=== PATIENT | female | born 1960 | race Caucasian/White ===

== ENCOUNTER → 2016-12-12 | Outpatient (CLI) | payer BC ==
--- NOTE | 2016-12-13 09:59 | MM ---
Reason for exam: screening (asymptomatic). Last mammogram was performed 1 year and 8 months ago. History: Patient is postmenopausal. Physical Findings: A clinical breast exam by your physician is recommended on an annual basis and results should be correlated with mammographic findings. MG Screening Mammo w CAD Bilateral CC and MLO view(s) were taken. Prior study comparison: April 20, 2015, bilateral MG screening mammo w CAD. June 10, 2013, bilateral digital screening mammo w/CAD. December 12, 2011, CAD bilateral diagnostic mammogram. There are scattered fibroglandular densities. A new group of microcalcifications upper outer quadrant in the right breast warrant further evaluation with magnification views. ASSESSMENT: Incomplete: need additional imaging evaluation, BI-RAD 0 RECOMMENDATION: Special view mammogram of the right breast. [facility] will attempt to contact patient to return for supplemental views.
== END | disposition home or self-care (01) ==
LOC: RADMAMWWP 16:56
PROVIDERS: ATTEND Family Medicine
DX: Z12.31 Encounter for screening mammogram for malignant neoplasm of breast (principal); R92.8 Other abnormal and inconclusive findings on diagnostic imaging of breast; Z78.0 Asymptomatic menopausal state

== ENCOUNTER → 2016-12-19 | Outpatient (CLI) | payer BC ==
--- NOTE | 2016-12-19 08:30 | MM ---
Reason for exam: additional evaluation requested from abnormal screening. Last mammogram was performed less than 1 month ago. History: Patient is postmenopausal. Physical Findings: Nurse did not find any significant physical abnormalities on exam. MG Work Up Mamm w CAD RT ML, CC with magnification, and ML with magnification view(s) were taken of the right breast. Prior study comparison: April 20, 2015, bilateral MG screening mammo w CAD. June 10, 2013, bilateral digital screening mammo w/CAD. Finding: There are indeterminate calcifications in the upper outer quadrant of the right breast. New finding since April 20, 2015 and June 10, 2013. These results were verbally communicated with the patient and result sheet given to the patient on 12/19/16. ASSESSMENT: Suspicious, BI-RAD 4 RECOMMENDATION: Stereotactic core biopsy of the right breast. Called Dr. Khanna with mammographic findings. Patient will make her own appointment. PRELIMINARY REPORT CALLED AND FAXED TO DR. KHANNA ON 12/19/16 AT 300/TMP.
== END | disposition home or self-care (01) ==
LOC: RADMAMWWP 06:59
PROVIDERS: ATTEND Family Medicine
DX: R92.8 Other abnormal and inconclusive findings on diagnostic imaging of breast (principal)

== ENCOUNTER → 2017-01-31 | Day surgery (SDC) | payer BC ==
[~2017-01-31] MED LIST: BACITRACIN OINT 1 EACH PACKET TOPICAL ONE; LIDOCAINE 1% INJ 10MG/ML (20 ML MDV) ONE
--- NOTE | 2017-01-31 08:53 | PCN ---
DATE OF PROCEDURE: PREPROCEDURE DIAGNOSIS: Mammographic abnormality, right breast. POST-PROCEDURE DIAGNOSIS: Mammographic abnormality, right breast. PROCEDURE: Right breast stereotactic core biopsy. SURGEON: YANG LEYVA MD DESCRIPTION OF PROCEDURE: Patient was taken to the stereotactic room. The area of concern in the right breast was identified radiographically. The breast was prepped using a Betadine; 1% lidocaine was used to anesthetize the area of concern. Needle was driven to the correct coordinates. Multiple core biopsies were obtained. Radiograph of specimen revealed area of concern had been removed. A marking clip was left behind. Patient tolerated the procedure in stable condition. Specimen sent for pathology.
--- NOTE | 2017-01-31 12:01 | MM ---
Stereotactic core biopsy right breast. HISTORY: Microcalcifications. The calcifications in question within the right breast were targeted by the undersigned. The examination was performed by the surgeon. Specimen radiograph demonstrates numerous calcifications within the specimen submitted. Post procedural mammogram demonstrates appropriate deployment of radiopaque clip marker. The patient tolerated the procedure well and left the department in stable condition. Pathology results are pending. IMPRESSION: Successful stereotactic core biopsy right breast with pathology results pending. Pathology Results: Benign BREAST, RIGHT, CORE BIOPSY: FIBROCYSTIC CHANGES INCLUDING FIBROSIS, CYSTS, AND FAT NECROSIS WITH FOCAL LYMPHOHISTIOCYTIC INFLAMMATION. PENDING DEEPER LEVELS, SEE NOTE. ADDENDUM REPORT BREAST, RIGHT, CORE BIOPSY: FIBROCYSTIC CHANGES INCLUDING FIBROSIS, CYSTS, AND FAT NECROSIS WITH LYMPHOHISTIOCYTIC INFLAMMATION AND CALCIFICATIONS. Recommendation Follow up mammogram of the right breast in 6 months. MTDD
== END ==
LOC: RADMAMWWP 07:28
PROVIDERS: ATTEND Surgery
DX: N60.31 Fibrosclerosis of right breast (principal); N64.1 Fat necrosis of breast; R92.8 Other abnormal and inconclusive findings on diagnostic imaging of breast; N64.89 Other specified disorders of breast; Z88.8 Allergy status to other drugs, medicaments and biological substances
CPT/HCPCS: 19081; A4648; J2001; 88305

== ENCOUNTER → 2017-12-25 | Outpatient (CLI) | payer BC ==
--- NOTE | 2017-12-25 08:51 | MM ---
Reason for exam: additional evaluation requested from prior study. Last mammogram was performed 1 year ago. History: Patient is postmenopausal. Benign MG stereo VAD BX RT of the right breast, January 31, 2017. Physical Findings: Nurse did not find any significant physical abnormalities on exam. MG Diagnostic Mammo w CAD [facility] Bilateral CC and MLO view(s) were taken. Prior study comparison: December 19, 2016, right breast MG work up mamm w CAD RT. December 12, 2016, bilateral MG screening mammo w CAD. There are scattered fibroglandular densities. Previous mammotome biopsy in the right breast. No significant new findings when compared with previous films. These results were verbally communicated with the patient and result sheet given to the patient on 12/25/17. ASSESSMENT: Negative, BI-RAD 1 RECOMMENDATION: Routine screening mammogram of both breasts in 1 year.
== END | disposition home or self-care (01) ==
LOC: RADMAMWWP 07:46
PROVIDERS: ATTEND Family Medicine
DX: R92.8 Other abnormal and inconclusive findings on diagnostic imaging of breast (principal)
CPT/HCPCS: 77066

== ENCOUNTER 2018-10-15 07:57 | Day surgery (SDC) | payer BC ==
[2018-10-13 17:45] VITALS: BMI 37.1
[~2018-10-15 07:57] MED LIST changes: -BACITRACIN OINT 1 EACH PACKET TOPICAL ONE; +LACTATED RINGERS 1,000 ML IV SCH; +LIDOCAINE 1% 20 ML VIAL (10MG/ML) FOR IV START INTRADERMA PRN; -LIDOCAINE 1% INJ 10MG/ML (20 ML MDV) ONE
--- NOTE | 2018-10-15 08:09 | P.GSHP ---
History of Present Illness H&P Date: 10/15/18 CHIEF COMPLAINT: GERD HISTORY OF PRESENT ILLNESS: The patient is a 57-year-old female who presents reports gastroesophageal reflux disease. Upper endoscopy was offered for further evaluation and management. PAST MEDICAL HISTORY: Please see list. PAST SURGICAL HISTORY: Please see list. MEDICATIONS: Please see list. ALLERGIES: Please see list. SOCIAL HISTORY: No illicit drug use FAMILY HISTORY: No reports of Crohn disease or ulcerative colitis. REVIEW OF ORGAN SYSTEMS: CONSTITUTIONAL: No reports of fevers or chills. GI: Denies any blood in stools or constipation. PHYSICAL EXAM: VITAL SIGNS: Stable GENERAL: Well-developed and pleasant in no acute distress. HEENT: No scleral icterus. Extraocular movements grossly intact. Moist buccal mucosa. NECK: Supple without lymphadenopathy. CHEST: Unlabored respirations. Equal bilateral excursions. CARDIOVASCULAR: Regular rate and rhythm. Distal 2+ pulses. ABDOMEN: Soft, nondistended. MUSCULOSKELETAL: No clubbing, cyanosis, or edema. ASSESSMENT: 1. Gastroesophageal reflux disease PLAN: 1. Recommend proceeding with an upper endoscopy Past Medical History Past Medical History: Diabetes Mellitus, Hyperlipidemia, Hypertension, Osteoarthritis (OA) Additional Past Medical History / Comment(s): pain in left side under ribs History of Any Multi-Drug Resistant Organisms: None Reported Past Surgical History: No Surgical Hx Reported Additional Past Surgical History / Comment(s): colonoscopy Past Anesthesia/Blood Transfusion Reactions: No Reported Reaction Smoking Status: Never smoker - Past Family History Mother Additional Family Medical History / Comment(s): PVC Medications and Allergies Home Medications Medication Instructions Recorded Confirmed Type Losartan/Hydrochlorothiazide 1 tab PO HS 05/06/15 10/13/18 History [Losartan-Hctz 100-25 mg Tab] Ibuprofen [Motrin] 600 mg PO Q6HR PRN #20 tab 01/30/16 10/13/18 Rx amLODIPine [Norvasc] 5 mg PO HS 01/30/16 10/13/18 History Atorvastatin [Lipitor] 20 mg PO HS 10/13/18 10/13/18 History Dulaglutide [Trulicity] 0.75 mg SQ WE 10/13/18 10/13/18 History Ertugliflozin/Metformin 1 each PO BID 10/13/18 10/13/18 History [Segluromet 2.5-1,000 mg Tablet] Allergies Allergy/AdvReac Type Severity Reaction Status Date / Time sucralose Allergy Intermediate MIGRAINES Verified 10/13/18 17:27 aspartame Allergy MIGRAINES Verified 10/13/18 17:27 chocolate flavor AdvReac migraines Verified 10/13/18 17:27
[2018-10-15 08:19] VITALS: TEMP 97.8
[2018-10-15] MEDS ORDERED: LACTATED RINGERS 1,000 ML IV ONE (08:19)
[2018-10-15 08:25] LABS: Glucose,Whole Blood 133 mg/dL (75-99)
[2018-10-15] MEDS ORDERED: PROPOFOL 10 MG/ML 20 ML VIAL IV ONE (08:37)
[2018-10-15 08:55] VITALS: RESP 16
--- NOTE | 2018-10-15 08:58 | P.PCN ---
Date of Procedure: 10/15/18 Description of Procedure: PREOPERATIVE DIAGNOSIS: Gastroesophageal reflux disease. Chronic NSAID use Epigastric abdominal pain Morbid obesity POSTOPERATIVE DIAGNOSIS: Gastroesophageal reflux disease. Chronic NSAID use Epigastric abdominal pain Morbid obesity Duodenal polyp OPERATION: Esophagogastroduodenoscopy with biopsies along duodenum SURGEON: Traci Baugh MD ANESTHESIA: MAC. INDICATIONS: The patient is a 57-year-old female who presents with a history of reflux disease and epigastric abdominal pain. Benefits and risks of the procedure were described. Informed consent was obtained. DESCRIPTION: The patient was brought into the endoscopy suite and laid in the left lateral decubitus position. An Olympus gastroscope was passed along the posterior oropharynx down to the distal esophagus where the squamocolumnar junction was encountered at 40 cm from the incisors. The stomach was entered and no bile reflux was found. Additional findings are listed below. The first through third portion of the duodenum was examined and remarkable for 2 cm flat villous polyp with biopsies obtained. Retroflexion of the scope confirmed Hill grade 2 lower esophageal valve. The squamocolumnar junction demonstrated LA grade A erosive esophagitis. The stomach was desufflated. The patient tolerated the procedure well. FINDINGS: Squamocolumnar junction 40 cm from the incisors. Diaphragmatic hiatus at 40 cm. Hill grade 2 lower esophageal valve. LA grade A erosive esophagitis. Flat villous polyp of the duodenum, first portion Chronic gastritis RECOMMENDATIONS: Upper endoscopy as needed. Plan - Discharge Summary New Discharge Prescriptions: No Action Losartan/Hydrochlorothiazide [Losartan-Hctz 100-25 mg Tab] 1 tab PO HS amLODIPine [Norvasc] 5 mg PO HS Ibuprofen [Motrin] 600 mg PO Q6HR PRN #20 tab PRN Reason: Pain Dulaglutide [Trulicity] 0.75 mg SQ WE Atorvastatin [Lipitor] 20 mg PO HS Ertugliflozin/Metformin [Segluromet 2.5-1,000 mg Tablet] 1 each PO BID Discharge Medication List Losartan/Hydrochlorothiazide [Losartan-Hctz 100-25 mg Tab] 1 tab PO HS 05/06/15 [History] Ibuprofen [Motrin] 600 mg PO Q6HR PRN #20 tab 01/30/16 [Rx] amLODIPine [Norvasc] 5 mg PO HS 01/30/16 [History] Atorvastatin [Lipitor] 20 mg PO HS 10/13/18 [History] Dulaglutide [Trulicity] 0.75 mg SQ WE 10/13/18 [History] Ertugliflozin/Metformin [Segluromet 2.5-1,000 mg Tablet] 1 each PO BID 10/13/18 [History]
[2018-10-15 09:09] VITALS: PULSE 80
[2018-10-15 09:24] VITALS: BP 130/84
== END 2018-10-15 09:26 | disposition home or self-care (01) ==
LOC: ORWHC2ENDO 07:57
PROVIDERS: ATTEND Surgery Plastic and Reconstructive Surgery
DX: K31.7 Polyp of stomach and duodenum (principal); K22.10 Ulcer of esophagus without bleeding; K21.0 Gastro-esophageal reflux disease with esophagitis; K29.50 Unspecified chronic gastritis without bleeding; Z79.1 Long term (current) use of non-steroidal anti-inflammatories (NSAID); E66.01 Morbid (severe) obesity due to excess calories; Z68.37 Body mass index [BMI] 37.0-37.9, adult; E11.9 Type 2 diabetes mellitus without complications; E78.5 Hyperlipidemia, unspecified; I10 Essential (primary) hypertension; M19.90 Unspecified osteoarthritis, unspecified site; Z79.84 Long term (current) use of oral hypoglycemic drugs; Z79.899 Other long term (current) drug therapy; Z88.5 Allergy status to narcotic agent; Z88.2 Allergy status to sulfonamides; Z91.02 Food additives allergy status
CPT/HCPCS: 88305; 43239; J2704

== ENCOUNTER → 2021-07-19 | Day surgery (SDC) | payer BC ==
[2021-07-18 11:21] VITALS: BMI 37.1
[~2021-07-19] MED LIST changes: +LACTATED RINGERS 1,000 ML IV ONE; +LIDOCAINE 1% (10MG/ML) FOR IV START INTRADERMA PRN; -LIDOCAINE 1% 20 ML VIAL (10MG/ML) FOR IV START INTRADERMA PRN; +PROPOFOL 10 MG/ML 20 ML VIAL IV ONE
[2021-07-19 08:17] VITALS: TEMP 97
[2021-07-19 08:23] LABS: Glucose,Whole Blood 169 mg/dL (75-99)
--- NOTE | 2021-07-19 08:50 | P.PCN ---
Date of Procedure: 07/19/21 Procedure(s) Performed: BRIEF HISTORY: Patient is a 60-year-old pleasant female scheduled for an elective colonoscopy as a part of screening for colorectal neoplasia. Her last screening colonoscopy was 10 years. PROCEDURE PERFORMED: Colonoscopy. PREOPERATIVE DIAGNOSIS: Screening for colon cancer. IV sedation per Anesthesia. PROCEDURE: After informed consent was obtained, the patient, was brought into the endoscopy unit. IV sedation was administered by Anesthesia under continuous monitoring. Digital rectal examination was normal. Initially the Olympus CF-160 flexible video colonoscope was then inserted in the rectum, gradually advanced into the cecum without any difficulty. Careful examination was performed as the scope was gradually being withdrawn. Ileocecal valve and the appendiceal orifice were visualized and appeared normal. Prep was excellent. Mucosa of the cecum, ascending colon, transverse colon, descending colon, sigmoid colon, and rectum appeared normal. Retroflexion was performed in the rectum and no lesions were seen. The patient tolerated the procedure well. IMPRESSION: Normal-appearing colon from rectum to cecum with no evidence of colorectal neoplasia . RECOMMENDATIONS: Findings of this examination were discussed with the patient as well as a family. She was advised to have a repeat screen colonoscopy in 10 years.
[2021-07-19 08:54] VITALS: RESP 15
[2021-07-19 09:14] VITALS: BP 115/78; PULSE 70
== END ==
LOC: ORWHC2ENDO 07:51
PROVIDERS: ATTEND Internal Medicine Gastroenterology
DX: Z12.11 Encounter for screening for malignant neoplasm of colon (principal); I10 Essential (primary) hypertension; E78.5 Hyperlipidemia, unspecified; E11.9 Type 2 diabetes mellitus without complications
CPT/HCPCS: 45378; J2704

== ENCOUNTER → 2022-06-06 | Outpatient (CLI) | payer BC ==
--- NOTE | 2022-06-07 23:25 | XR ---
EXAMINATION TYPE: XR foot complete LT DATE OF EXAM: 06/06/2022 CLINICAL HISTORY: Pain. TECHNIQUE: Frontal, lateral, and oblique images of the left foot are obtained. COMPARISON: None FINDINGS: There is no acute fracture/dislocation evident in the left foot. Large inferior calcaneal spur. Moderate narrowing midfoot level including Lisfranc joints with moderate to severe spurring at base of metatarsals along with dorsal aspect of the navicular bone. Subchondral cystic change at this level is present. Mild diffuse subcutaneous edema. Tiny curvilinear calcification distal Achilles te ndon insertion. IMPRESSION: As above.
== END | disposition home or self-care (01) ==
LOC: RADXRMAIN 10:32
PROVIDERS: ATTEND Family Medicine
DX: M79.672 Pain in left foot (principal)

== ENCOUNTER → 2022-10-17 | Outpatient (CLI) | payer BC ==
--- NOTE | 2022-10-18 08:25 | MM ---
Reason for Exam: Screening (asymptomatic). Last mammogram was performed 2 year(s) and 4 month(s) ago. Patient History: Menarche at age 10. First Full-Term at age 20. Postmenopausal. Patient has history of breast feeding. 01/31/2017, Benign Core Biopsy on the right side. Risk Values: Jasmin 5 year model risk: 1.7%. NCI Lifetime model risk: 7.1%. Prior Study Comparison: 04/20/2015 Bilateral Screening Mammogram, [facility]. 12/12/2016 Bilateral Screening Mammogram, [facility]. 12/19/2016 Right Diagnostic Mammogram, [facility]. 12/25/2017 Bilateral Diagnostic Mammogram, [facility]. 06/22/2020 Bilateral Screening Mammogram, [facility]. Tissue Density: The breast tissue is almost entirely fat. Findings: Analyzed By CAD. There is no suspicious group of microcalcifications or new suspicious mass in either breast. Overall Assessment: Negative, BI-RAD 1 Management: Screening Mammogram of both breasts in 1 year. A clinical breast exam by your physician is recommended on an annual basis and results should be correlated with mammographic findings. [facility] will attempt to contact patient to return for supplemental views and ultrasound if indicated. Electronically signed and approved by: Oliver Neff DO
== END | disposition home or self-care (01) ==
LOC: RADMAMWWP 07:04
PROVIDERS: ATTEND Family Medicine
DX: Z12.31 Encounter for screening mammogram for malignant neoplasm of breast (principal); Z78.0 Asymptomatic menopausal state
CPT/HCPCS: 77067

== ENCOUNTER → 2024-01-22 | Outpatient (CLI) | payer BC ==
--- NOTE | 2024-01-22 10:14 | BD ---
EXAMINATION TYPE: Axial Bone Density DATE OF EXAM: 01/22/2024 CLINICAL HISTORY: 63 years old Female. ICD-10 CODE: Z78.0 ASYMPTOMATIC MENOPAUSAL STATE Height: 66" Weight: 226lbs FRAX RISK QUESTIONS: Alcohol (3 or more units per day): No Family History (Parent hip fracture): No Glucocorticoids (More than 3mos): No (Ex: prednisone, prednisolone, methylprednisolone, dexamethasone, and hydrocortisone). History of Fracture in Adulthood: No Secondary Osteoporosis: 1. Type 1 Diabetes: No 2. Hyperthyroidism: No 3. Menopause before 45: No 4. Malnutrition: No 5. Chronic liver disease: No Rheumatoid Arthritis: No Current Tobacco Use: No RISK FACTORS HISTORY OF: Hip Fracture (Right/Left): No Spine Fracture: No History of Wrist Fracture: No Surgery to Spine/Hip(right/left)/Wrist (right/left): No MEDICATIONS: Thyroid Medications: No Osteoporosis Medications: No Patient takes vitamin D EXAM MEASUREMENTS: Bone mineral densitometry was performed using the [employer] System. Bone mineral density as measured about the Lumbar spine is: ----- L1-L4(G/cm2): 1.741 T Score Values are as follows: ----- L1: 4.6 ----- L2: 5.0 ----- L3: 3.7 ----- L4: 5.3 ----- L1-L4: 4.7 Z Score Values are as follows: ----- L1: 5.0 ----- L2: 5.5 ----- L3: 4.1 ----- L4: 5.7 ----- L1-L4: 5.1 Baseline @MPH Bone mineral density about the R hip (g/cm2): 1.190 Bone mineral density about the L hip (g/cm2): 1.249 T Score values are as follows: -----R Neck: 1.1 -----L Neck: 1.3 -----R Total: 1.4 -----L Total: 1.9 Z Score values are as follows: -----R Neck: 1.8 -----L Neck: 2.0 -----R Total: 1.8 -----L Total: 2.3 Baseline @MPH FRAX%s: The graph provided illustrates a 5.2% chance for a major osteoporotic fx and a 0.1% chance fo r the hips probability for fx in 10 years time. IMPRESSION: Normal (Values between +1 and -1 indicate normal bone mass). Consider repeating this study in 5 year s or sooner if there is some new clinical indication. NOTE: T-SCORE=SD OF THE YOUNG ADULT MEAN.
--- NOTE | 2024-01-23 20:05 | MM ---
Reason for Exam: Screening (asymptomatic). Last mammogram was performed 1 year(s) and 3 month(s) ago. Patient History: Menarche at age 10. First Full-Term at age 20. Postmenopausal. Patient has history of breast feeding. 01/31/2017, Benign Core Biopsy on the right side. Risk Values: Jasmin 5 year model risk: 1.8%. NCI Lifetime model risk: 6.6%. Prior Study Comparison: 12/25/2017 Bilateral Diagnostic Mammogram, [facility]. 06/22/2020 Bilateral Screening Mammogram, [facility]. 10/17/2022 Bilateral MG screening mammo w CAD, [facility]. Tissue Density: There are scattered areas of fibroglandular density. Findings: Analyzed By CAD. Microclip right breast from prior biopsy. There is no suspicious group of microcalcifications or new suspicious mass in either breast. Overall Assessment: Negative, BI-RAD 1 Management: Screening Mammogram of both breasts in 1 year. . Patient should continue monthly self-breast exams. A clinical breast exam by your physician is recommended on an annual basis. This exam should not preclude additional follow-up of suspicious palpable abnormalities. Note on Jasmin scores and lifetime risk: 1. A Jasmin score greater than 3% is considered moderate risk. If this is the case, consider specialist referral to assess eligibility for a risk reducing agent. 2. If overall lifetime risk for the development of breast cancer is 20% or higher, the patient may qualify for future screening with alternating mammogram and breast MRI. Electronically signed and approved by: Bebeto Barrett M.D. Radiologist
== END | disposition home or self-care (01) ==
LOC: RADMAMWWP 06:54
PROVIDERS: ATTEND Family Medicine
DX: Z12.31 Encounter for screening mammogram for malignant neoplasm of breast (principal); Z78.0 Asymptomatic menopausal state
CPT/HCPCS: 77063; 77067; 77080

== ENCOUNTER → 2025-02-10 | Outpatient (CLI) | payer MEDICARE ==
--- NOTE | 2025-02-10 07:58 | MM ---
Reason for Exam: Screening (asymptomatic). Last mammogram was performed 1 year(s) and 1 month(s) ago. Patient History: Menarche at age 10. First Full-Term at age 20. Postmenopausal. Patient has history of breast feeding. 01/31/2017, Benign Core Biopsy on the right side. Risk Values: Jasmin 5 year model risk: 1.8%. NCI Lifetime model risk: 6.4%. Prior Study Comparison: 06/22/2020 Bilateral Screening Mammogram, [facility]. 10/17/2022 Bilateral MG screening mammo w CAD, [facility]. 01/22/2024 Bilateral MG 3D screening mammo w/cad, [facility]. Tissue Density: There are scattered areas of fibroglandular density. Findings: Analyzed By CAD. Mammotome biopsy clip in the right breast is demonstrated. There is no suspicious group of microcalcifications or new suspicious mass in either breast. Overall Assessment: Benign, BI-RAD 2 Management: Screening Mammogram of both breasts in 1 year. . Patient should continue monthly self-breast exams. A clinical breast exam by your physician is recommended on an annual basis. This exam should not preclude additional follow-up of suspicious palpable abnormalities. Note on Jasmin scores and lifetime risk: 1. A Jasmin score greater than 3% is considered moderate risk. If this is the case, consider specialist referral to assess eligibility for a risk reducing agent. 2. If overall lifetime risk for the development of breast cancer is 20% or higher, the patient may qualify for future screening with alternating mammogram and breast MRI. [facility], , 02/10/2025 7:55 AM. Electronically signed and approved by: Gelacio Burch M.D.
== END | disposition home or self-care (01) ==
LOC: RADMAMWWP 07:31
PROVIDERS: ATTEND Family Medicine
DX: Z12.31 Encounter for screening mammogram for malignant neoplasm of breast (principal); R92.323 Mammographic fibroglandular density, bilateral breasts; Z78.0 Asymptomatic menopausal state
CPT/HCPCS: 77063; 77067